=== PATIENT | female | born 1950 | race Caucasian/White ===

== ENCOUNTER 2024-03-08 09:23 | Day surgery (SDC) | payer BC, MEDICARE ==
[2024-03-08] MEDS: Polymyxin B/Trimethoprim 10 ML Bottle EYELF SCH (09:00)
[2024-03-08] MEDS: Brimonidine 0.2% Ophth Soln 5 ML Bottle EYELF SCH (09:03)
[2024-03-08] MEDS: Phenylephrine 2.5% Ophth Soln 2 ML Bot EYELF SCH (09:08)
[2024-03-08] MEDS: Tropicamide 1% Ophth Soln 3 ML Bottle EYELF SCH (09:11)
[2024-03-08] MEDS: Tetracaine HCl/PF 0.5% 4 ML Bottle EYEBOTH SCH (09:50)
[2024-03-08] MEDS: Lidocaine 1% PF 2 ML SDV INJECT SCH (10:20)
[2024-03-08] MEDS: Pilocarpine 4% Ophth Soln 15 ML Bot EYELF SCH (10:34)
[2024-03-08] MEDS: Cefuroxime 10 MG/ML SYRINGE EYELF SCH (10:34)
[2024-03-08 10:52] VITALS: BP 150/78; PULSE 69
== END 2024-03-08 10:50 | disposition home or self-care (01) ==
LOC: JD.SDS 09:23
PROVIDERS: ATTEND Ophthalmology
DX: H25.813 Combined forms of age-related cataract, bilateral (principal); I10 Essential (primary) hypertension; E78.2 Mixed hyperlipidemia
CPT/HCPCS: 66984; A9270; J0697; J3490

== ENCOUNTER 2024-04-05 13:34 | Day surgery (SDC) | payer MEDICARE, OTHER ==
[2024-04-05] MEDS: Polymyxin B/Trimethoprim 10 ML Bottle EYERT SCH (14:26)
[2024-04-05] MEDS: Brimonidine 0.2% Ophth Soln 5 ML Bottle EYERT SCH (14:30)
[2024-04-05] MEDS: Phenylephrine 2.5% Ophth Soln 2 ML Bot EYERT SCH (14:35)
[2024-04-05] MEDS: Tropicamide 1% Ophth Soln 3 ML Bottle EYERT SCH (14:41)
[2024-04-05] MEDS: Tetracaine HCl/PF 0.5% 4 ML Bottle EYEBOTH SCH (15:43)
[2024-04-05] MEDS: Lidocaine 1% PF 2 ML SDV INJECT SCH (15:57)
[2024-04-05] MEDS: Cefuroxime 10 MG/ML SYRINGE EYERT SCH (16:10)
[2024-04-05] MEDS: Pilocarpine 4% Ophth Soln 15 ML Bot EYERT SCH (16:10)
[2024-04-05 16:25] VITALS: BP 127/86; PULSE 58
== END 2024-04-05 16:20 | disposition home or self-care (01) ==
LOC: JD.SDS 13:34
PROVIDERS: ATTEND Ophthalmology
DX: H25.811 Combined forms of age-related cataract, right eye (principal); H21.41 Pupillary membranes, right eye; H21.81 Floppy iris syndrome; H16.103 Unspecified superficial keratitis, bilateral; H16.223 Keratoconjunctivitis sicca, not specified as Sjogren's, bilateral; I10 Essential (primary) hypertension; E78.2 Mixed hyperlipidemia; Z79.899 Other long term (current) drug therapy
CPT/HCPCS: 66982; A9270; J0697; J3490; V2632